=== PATIENT | female | born 1995 | race Caucasian/White ===

== ENCOUNTER 2016-12-13 15:05 | Emergency (ER) | payer BC ==
[2016-12-13 16:48] VITALS: BP 118/79
--- NOTE | 2016-12-13 17:41 | UC ---
Respiratory Complaint HPI - HPI Summary HPI Summary: worsening sinus pain and pressure for the past several days also has a tight chest and cough - History of Current Complaint Chief Complaint: UCRespiratory Stated Complaint: SINUS,SORE THROAT,EAR PAIN Time Seen by Provider: 12/13/16 17:36 Hx Obtained From: Patient Hx Last Menstrual Period: 12/03/16 ?: No Onset/Duration: Gradual Onset, Lasting Days, Still Present, Worse Since - 4 days Timing: Constant Severity Initially: Mild Severity Currently: Moderate Pain Intensity: 6 Pain Scale Used: 0-10 Numeric Character: Cough: Productive Aggravating Factors: Exertion, Deep Breaths Alleviating Factors: Nothing Associated Signs And Symptoms: Positive: Pleuritic Chest Pain, URI, Sinus Discomfort - Allergies/Home Medications Allergies/Adverse Reactions: Allergies Allergy/AdvReac Type Severity Reaction Status Date / Time No Known Allergies Allergy Verified 12/13/16 16:48 Home Medications: Home Medications Hmzesontfb-Hxpanqrpzvepj-Sgfyr [Sinus & Congestion Daytim] 1 mis PO DAILY [History Confirmed 12/13/16] PMH/Surg Hx/FS Hx/Imm Hx Previously Healthy: No Endocrine History Of: Denies: Diabetes, Thyroid Disease, Hyperthyroidism, Hypothyroidism, Dyslipidemia Cardiovascular History Of: Denies: Cardiac Disorders, Hypertension, Pacemaker/ICD, Myocardial Infarction , Congestive Heart Failure, Atrial Fibrillation, Deep Vein Thrombosis, Bleeding Disorders Respiratory History Of: Denies: COPD, Asthma, Bronchitis, Pneumonia, Pulmonary Embolism GI/ History Of: Denies: Gastroesophageal Reflux, Ulcer, Gastrointestinal Bleed, Gall Bladder Disease, Kidney Stones, Diverticulitis, Renal Disease, Urosepsis Neurological History Of: Denies: TIA, CVA, Dementia, Seizures, Migraine Psychological History Of: Reports: Anxiety - Anxiety and depression is a problem "on and off.", Depression Denies: Bipolar Disorder, Schizophrenia, Post Traumatic Stress Disorder Cancer History Of: Denies: Lung Cancer, Colorectal Cancer, Breast Cancer, Prostate Cancer, Cervical Cancer - Surgical History Surgical History: None - Family History Known Family History: Positive: Hypertension, Diabetes - Social History Occupation: Employed Full-time Lives: With Family Alcohol Use: Weekly Substance Use Type: None Smoking Status (MU): Former Smoker Type: Cigarettes, Cigars Amount Used/How Often: SOCIALLY--[employer] Length of Time of Smoking/Using Tobacco: 3 YRS Have You Smoked in the Last Year: Yes Review of Systems Constitutional: Negative Skin: Negative Eyes: Negative ENT: Sore Throat, Ear Ache, Nasal Discharge Respiratory: Cough Cardiovascular: Negative Gastrointestinal: Negative Genitourinary: Negative Motor: Negative Neurovascular: Negative Musculoskeletal: Negative Neurological: Headache - fontal/maxillary sinus pain Psychological: Negative All Other Systems Reviewed And Are Negative: Yes Physical Exam Triage Information Reviewed: Yes Appearance: Well-Appearing, No Pain Distress, Well-Nourished Vital Signs: Initial Vital Signs Temp 99.4 F 12/13/16 16:43 Pulse 63 12/13/16 16:43 Resp 16 12/13/16 16:43 BP 118/79 12/13/16 16:43 Pulse Ox 100 12/13/16 16:43 Vital Signs Reviewed: Yes Eye Exam: Normal Eyes: Positive: Conjunctiva Clear ENT Exam: Normal ENT: Positive: Normal ENT inspection, Hearing grossly normal, Pharynx normal, Nasal congestion, Nasal drainage, TMs normal. Negative: Tonsillar swelling, Tonsillar exudate, Trismus, Muffled/hoarse voice Dental Exam: Normal Neck exam: Normal Neck: Positive: Supple, Nontender, No Lymphadenopathy Respiratory Exam: Normal Respiratory: Positive: Chest non-tender, Lungs clear, Normal breath sounds, No respiratory distress, No accessory muscle use Cardiovascular Exam: Normal Cardiovascular: Positive: RRR, No Murmur, Pulses Normal, Brisk Capillary Refill Musculoskeletal Exam: Normal Musculoskeletal: Positive: Strength Intact, ROM Intact, No Edema Neurological Exam: Normal Neurological: Positive: Alert, Muscle Tone Normal Psychological Exam: Normal Skin Exam: Normal UC Diagnostic Evaluation - Laboratory O2 Sat by Pulse Oximetry: 100 Respiratory Course/Dx - Course Course Of Treatment: flonase, albuterol, increase fluids, augmentin follow with pcp - Differential Dx/Diagnosis Differential Diagnosis/HQI/PQRI: Bronchitis, Influenza, Laryngitis, Lower Resp Infection, Sinusitis Provider Diagnoses: Acute rhinosinusitis Discharge - Discharge Plan Condition: Stable Disposition: HOME Prescriptions: Albuterol HFA INHALER* [Ventolin HFA Inhaler*] 2 puff INH Q4H PRN #1 mdi PRN Reason: cough Amoxicillin/Clavulanate TAB* [Augmentin TAB 875*] 875 mg PO BID #20 tab Fluticasone NASAL SPRAY 50MCG* [Flonase NASAL SPRAY 50MCG*] 2 spray BOTH NARES DAILY #1 btl Patient Education Materials: Albuterol (By breathing), Sinusitis (ED), How to Use Nasal Spangler (ED) Forms: *School Release Referrals: [facility] [place] [facility] [Outside] - 5 Days No Primary Care Phys,NOPCP [Primary Care Provider] -
== END 2016-12-13 18:00 | disposition home or self-care (01) ==
LOC: UCCORT 15:05
DX: J01.90 Acute sinusitis, unspecified (principal); F41.8 Other specified anxiety disorders; Z72.0 Tobacco use
CPT/HCPCS: 99212; G0463

== ENCOUNTER 2017-04-21 16:46 | Emergency (ER) | payer SELFPAY ==
[2017-04-21 17:13] VITALS: BP 127/79
--- NOTE | 2017-04-21 17:30 | UC ---
Respiratory Complaint HPI - HPI Summary HPI Summary: ncreaed cough and wheezing for the past 2 days - History of Current Complaint Chief Complaint: UCRespiratory Stated Complaint: COLD SYMPTOMS Time Seen by Provider: 04/21/17 17:10 Hx Obtained From: Patient Hx Last Menstrual Period: 04/16/17 Onset/Duration: Sudden Onset, Lasting Days Timing: Constant Severity Initially: Mild Severity Currently: Mild Character: Cough: Nonproductive Aggravating Factors: Exertion, Deep Breaths Alleviating Factors: Nothing Associated Signs And Symptoms: Positive: Wheezing - Allergies/Home Medications Allergies/Adverse Reactions: Allergies Allergy/AdvReac Type Severity Reaction Status Date / Time No Known Allergies Allergy Verified 04/21/17 17:13 PMH/Surg Hx/FS Hx/Imm Hx Previously Healthy: Yes - Surgical History Surgical History: None - Family History Known Family History: Positive: Hypertension, Diabetes - Social History Alcohol Use: Occasionally Substance Use Type: None Smoking Status (MU): Former Smoker Type: Cigarettes, Cigars Amount Used/How Often: SOCIALLY--[employer] Length of Time of Smoking/Using Tobacco: 3 YRS Have You Smoked in the Last Year: Yes - Immunization History Most Recent Influenza Vaccination: no Review of Systems Constitutional: Negative Skin: Negative Eyes: Negative ENT: Negative Respiratory: Shortness Of Breath, Cough Cardiovascular: Negative Gastrointestinal: Negative Genitourinary: Negative Motor: Negative Neurovascular: Negative Musculoskeletal: Negative Neurological: Negative Psychological: Negative Is Patient Immunocompromised?: No All Other Systems Reviewed And Are Negative: Yes Physical Exam Triage Information Reviewed: Yes Appearance: Well-Appearing, Well-Nourished, Pain Distress Vital Signs: Initial Vital Signs Temp 98.2 F 04/21/17 17:09 Pulse 64 04/21/17 17:09 Resp 15 04/21/17 17:09 BP 127/79 04/21/17 17:09 Pulse Ox 100 04/21/17 17:09 Vital Signs Reviewed: Yes Eye Exam: Normal ENT: Positive: Pharynx normal, TMs normal Dental Exam: Normal Neck exam: Normal Respiratory: Positive: Chest non-tender, Normal breath sounds, Wheezing, Inspiration Cardiovascular Exam: Normal Cardiovascular: Positive: RRR, No Murmur, Pulses Normal Abdominal Exam: Normal Abdomen Description: Positive: Nontender, No Organomegaly, Soft Bowel Sounds: Positive: Present Musculoskeletal Exam: Normal Neurological Exam: Normal Psychological Exam: Normal Skin Exam: Normal UC Diagnostic Evaluation - Laboratory O2 Sat by Pulse Oximetry: 100 Respiratory Course/Dx - Differential Dx/Diagnosis Provider Diagnoses: wheezing. cold symptoms Discharge - Discharge Plan Condition: Stable Disposition: HOME Prescriptions: predniSONE TAB* [Deltasone TAB*] 40 mg PO DAILY #14 tab Patient Education Materials: Wheezing (ED) Referrals: No Primary Care Phys,NOPCP [Primary Care Provider] - Additional Instructions: 1. continue with your albuterol and flonase 2. Start the daily prednisone 3. INcrease fluid intake and get plenty of rest.
== END 2017-04-21 17:32 | disposition home or self-care (01) ==
LOC: UCCORT 16:46
DX: R06.2 Wheezing (principal); Z87.891 Personal history of nicotine dependence
CPT/HCPCS: 99212; G0463

== ENCOUNTER 2017-07-10 17:49 | Emergency (ER) | payer SELFPAY ==
[2017-07-10 18:37] VITALS: BP 125/79
--- NOTE | 2017-07-10 19:00 | UC ---
Complaint Female HPI - HPI Summary HPI Summary: Pt states she is "two weeks late for her period" has taken to at home tests and both were negative. Pt c/o nausea, vomiting, fatigue X 2 days. Does not use control and has had unprotected sex. - History Of Current Complaint Stated Complaint: TEST Time Seen by Provider: 07/10/17 18:17 Hx Obtained From: Patient Hx Last Menstrual Period: END April 2017 ?: Yes - test at today's visit Onset/Duration: Sudden Onset, Lasting Days, Still Present Timing: Intermittent Severity Initially: Mild Severity Currently: Mild Character: Colicy Aggravating Factor(s): Other - food Alleviating Factor(s): Nothing Associated Signs And Symptoms: Positive: Nausea, Vomiting(# Of Episodes =) - Risk Factors Ectopic Risk Factor: Negative Ovarian Torsion Risk Factor: Negative - Allergies/Home Medications Allergies/Adverse Reactions: Allergies Allergy/AdvReac Type Severity Reaction Status Date / Time No Known Allergies Allergy Verified 07/10/17 18:28 PMH/Surg Hx/FS Hx/Imm Hx Previously Healthy: Yes - Surgical History Surgical History: None - Family History Known Family History: Positive: Hypertension, Diabetes - Social History Occupation: Employed Full-time Lives: With Family Alcohol Use: Occasionally Substance Use Type: None Smoking Status (MU): Former Smoker Type: Cigarettes, Cigars Amount Used/How Often: SOCIALLY--[employer] Length of Time of Smoking/Using Tobacco: 3 YRS Have You Smoked in the Last Year: Yes Household Exposure Type: Cigarettes - Immunization History Most Recent Influenza Vaccination: no Review of Systems Constitutional: Negative Skin: Negative Eyes: Negative ENT: Negative Respiratory: Negative Cardiovascular: Negative Gastrointestinal: Vomiting, Nausea Genitourinary: Negative Motor: Negative Neurovascular: Negative Musculoskeletal: Negative Neurological: Negative Psychological: Negative Is Patient Immunocompromised?: No All Other Systems Reviewed And Are Negative: Yes Physical Exam Triage Information Reviewed: Yes Appearance: Well-Appearing Vital Signs: Initial Vital Signs Temp 98.1 F 07/10/17 18:29 Pulse 83 07/10/17 18:29 Resp 16 07/10/17 18:29 BP 125/79 07/10/17 18:29 Pulse Ox 100 07/10/17 18:29 Vital Signs Reviewed: Yes Eye Exam: Normal ENT Exam: Normal Neck exam: Normal Respiratory Exam: Normal Cardiovascular Exam: Normal Abdominal Exam: Normal Musculoskeletal Exam: Normal Neurological Exam: Normal Psychological Exam: Normal Skin Exam: Normal Complaint Female Dx - Differential Dx/Diagnosis Differential Diagnosis/HQI/PQRI: , Sexually Transmitted Disease, Urinary Tract Infection Provider Diagnoses: Discharge - Discharge Plan Condition: Stable Disposition: HOME Prescriptions: Multivit-Min W/Fe-FA [ and Iron] 1 tab PO DAILY #30 tab Patient Education Materials: Nausea and Vomiting in (ED), ( ED) Referrals: [facility] [place] [facility] [Outside] Sergio Vasquez MD [Medical Doctor] - Umer,In-MD Deborah [Medical Doctor] - Barbi Guillen MD [Medical Doctor] - Simin Swartz MD [Medical Doctor] - No Primary Care Phys,NOPCP [Primary Care Provider] - As Soon As Possible Additional Instructions: Please seek care from any of the providers listed above. It is important that you establish care as soon as possible.
== END 2017-07-10 19:25 | disposition home or self-care (01) ==
LOC: UCCORT 17:49
DX: O21.0 Mild hyperemesis gravidarum (principal); O99.330 Smoking (tobacco) complicating pregnancy, unspecified trimester; Z3A.00 Weeks of gestation of pregnancy not specified
CPT/HCPCS: 81003; 84702; 87086; 99212; G0463

== ENCOUNTER 2017-07-18 13:49 | Emergency (ER) | payer SELFPAY ==
[2017-07-18 14:00] VITALS: BP 130/83
--- NOTE | 2017-07-18 14:08 | UC ---
Complaint Female HPI - HPI Summary HPI Summary: Pt presents ~8 weeks with lower abdominal cramping and spotting with small blood clots for the past week. This is her first . She has had significant nausea, but no vomiting. The lower abdominal cramping is the worst today that it has been all week. She denies fever, chills, dysuria, hematuria, SOB, cough, chest pain, headache, or dizziness. She does not have an OBGYN and has not had any blood tests or ultrasounds. She taking a vitamin daily. Her LMP was mid-late april - History Of Current Complaint Chief Complaint: UCAbdominalPain Stated Complaint: CRAMPING,BLEEDING,6 WEEKS PREG Time Seen by Provider: 07/18/17 14:03 Hx Obtained From: Patient Hx Last Menstrual Period: april ?: Yes Onset/Duration: Gradual Onset Timing: Constant Severity Initially: Mild Severity Currently: Moderate Pain Intensity: 9 Pain Scale Used: 0-10 Numeric Character: Dull, Cramping - Allergies/Home Medications Allergies/Adverse Reactions: Allergies Allergy/AdvReac Type Severity Reaction Status Date / Time No Known Allergies Allergy Verified 07/18/17 14:00 Home Medications: Home Medications Acetaminophen [Tylenol 8 Hour] 650 mg PO Q6H PRN 07/18/17 [History Confirmed ] PMH/Surg Hx/FS Hx/Imm Hx Previously Healthy: Yes - Surgical History Surgical History: None - Family History Known Family History: Positive: Hypertension, Diabetes - Social History Occupation: Student Lives: With Family Alcohol Use: None Substance Use Type: None Smoking Status (MU): Former Smoker Type: Cigarettes, Cigars Amount Used/How Often: [email or web address] Length of Time of Smoking/Using Tobacco: 3 YRS Have You Smoked in the Last Year: Yes Household Exposure Type: Cigarettes - Immunization History Most Recent Influenza Vaccination: none Review of Systems Constitutional: Negative Skin: Negative ENT: Negative Respiratory: Negative Cardiovascular: Negative Gastrointestinal: Abdominal Pain - Lower Genitourinary: Abnormal Bleeding - Vaginal Neurovascular: Negative Neurological: Negative Psychological: Negative All Other Systems Reviewed And Are Negative: Yes Physical Exam Triage Information Reviewed: Yes Appearance: Well-Appearing, No Pain Distress, Well-Nourished Vital Signs: Initial Vital Signs Temp 97.6 F 07/18/17 13:55 Pulse 81 07/18/17 13:55 Resp 16 07/18/17 13:55 BP 130/83 07/18/17 13:55 Pulse Ox 100 07/18/17 13:55 Vital Signs Reviewed: Yes Eyes: Positive: Conjunctiva Clear, Other: - No pallor. Negative: Conjunctiva Inflamed ENT: Positive: Hearing grossly normal, Pharynx normal, TMs normal, Uvula midline , Other - No pallor. Negative: Pharyngeal erythema, TM bulging, TM dull, TM red , Tonsillar swelling, Tonsillar exudate Neck: Positive: Supple, Nontender, No Lymphadenopathy Respiratory: Positive: Chest non-tender, Lungs clear, Normal breath sounds, No respiratory distress, No accessory muscle use Cardiovascular: Positive: RRR, No Murmur, Pulses Normal, Brisk Capillary Refill Abdomen Description: Positive: No Organomegaly, Guarding - Hypogastric, Other: - Hypogastric pain. Negative: CVA Tenderness (R), CVA Tenderness (L), Distended , McBurney's Point Tenderness, Peritoneal Signs, Pulsatile Mass Bowel Sounds: Positive: Present Neurological: Positive: Alert Psychological: Positive: Age Appropriate Behavior - Additional Comments Genital exam: Pubic hair shaven. Vaginal pearson pink with copious blood and clotted blood. Cervix with clotted blood at 6 o'clock - appears closed, but with recent bleeding from os. No thick or discolored discharge appreciated. No products of conception seen. There is mild CMT. Uterus is small pear shaped and mildly tender. Adnexa are nontender. Ovaries not palpated. Complaint Female Dx - Course Course Of Treatment: Possible threatened . Pt was advised to seek a further work up in the ED - likely in need of labs, ultrasound, and/or OBGYN consult. An ambulance was offered to her, but she declined. She voiced understanding and will go there now by private vehicle - this is agreeable to me as her VS are stable and she is in no acute distress. - Differential Dx/Diagnosis Differential Diagnosis/HQI/PQRI: Cervicitis, Ectopic, Pelvic Inflammatory Disease, , Sexually Transmitted Disease Provider Diagnoses: Threatened . Vaginal bleeding. Lower abdominal cramping Discharge - Discharge Plan Condition: Stable Disposition: OTHER Discharge Disposition Comment: To [facility] [place] [facility] [place] private [place] Referrals: No Primary Care Phys,NOPCP [Primary Care Provider] - Additional Instructions: The provider that examined you today advised that you seek further medical evaluation in the ED. 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
== END 2017-07-18 14:55 ==
LOC: UCEAST 13:49
DX: O20.0 Threatened abortion (principal); Z3A.08 8 weeks gestation of pregnancy; Z87.891 Personal history of nicotine dependence
CPT/HCPCS: 81003; 99212; G0463

== ENCOUNTER 2017-07-18 15:15 | Emergency (ER) | payer SELFPAY ==
[2017-07-18] MEDS ORDERED: Acetaminophen TAB* 325 MG PO ONE (15:46)
--- NOTE | 2017-07-18 16:34 | RAD ---
INDICATION: Early with bleeding COMPARISON: None TECHNIQUE: Transvaginal scans were obtained for determination FINDINGS: There is no evidence of intrauterine gestation. The endometrial stripe measures 0.7 cm The uterus measures Brenda 1 x 3.2 x 3.6. There is no evidence of adnexal mass. The right ovary measures 2.9 x 2.2 x 2.7 cm in the left 2.7 x 1.8 x 1.9 cm. There is probably an exophytic cyst in the left ovary which is involuting and is measured at 1.4 cm in greatest dimension. This entity shows no flow on Doppler interrogation. The ovaries demonstrate normal Doppler flow. There is no free fluid IMPRESSION: NO EVIDENCE OF INTRAUTERINE GESTATION. SUGGEST CORRELATION WITH SERIAL HCGS AND FOLLOW-UP ULTRASONOGRAPHY NECESSARY
[2017-07-18 17:23] VITALS: BP 124/78
--- NOTE | 2017-07-18 18:17 | ED ---
Bradley Mcgregor Stephanie, scribed for Fredo Resendiz MD on 07/18/17 at 1539 . Abdominal Pain/Female - HPI Summary HPI Summary: Pt is a 22 y/o F presenting to the ED with abd cramping and bleeding. Pt had a positive test on 07/10/17 and is 6-8 weeks . Symptoms include nausea and diarrhea. Pt denies dysuria. Her last known menstrual period was on May 20. The pt states that the blood appears to be darker currently compared to at the onset of bleeding. The pt has a card documenting her blood type as O+. - History of Current Complaint Chief Complaint: EDAbdPain Stated Complaint: ABP PAIN SENT FROM [facility] Time Seen by Provider: 07/18/17 15:24 Hx Obtained From: Patient Hx Last Menstrual Period: april ?: Yes Onset/Duration: Still Present Timing: Constant Pain Intensity: 7 Pain Scale Used: 0-10 Numeric Aggravating Factor(s): Nothing Alleviating Factor(s): Nothing Associated Signs and Symptoms: Positive: Urinary Symptoms - negative: dysuria, Nausea, Diarrhea. Negative: Fever Allergies/Adverse Reactions: Allergies Allergy/AdvReac Type Severity Reaction Status Date / Time No Known Allergies Allergy Verified 07/18/17 14:00 PMH/Surg Hx/FS Hx/Imm Hx Endocrine/Hematology History: Denies: Hx Diabetes, Hx Thyroid Disease Cardiovascular History: Denies: Hx Congestive Heart Failure, Hx Deep Vein Thrombosis, Hx Hypertension , Hx Myocardial Infarction, Hx Pacemaker/ICD Respiratory History: Denies: Hx Asthma, Hx Chronic Obstructive Pulmonary Disease (COPD), Hx Lung Cancer, Hx Pneumonia, Hx Pulmonary Embolism GI History: Denies: Hx Gall Bladder Disease, Hx Gastrointestinal Bleed, Hx Ulcer, Hx Urosepsis History: Denies: Hx Kidney Stones, Hx Renal Disease Sensory History: Denies: Hx Hearing Aid Neurological History: Denies: Hx Dementia, Hx Migraine, Hx Seizures, Hx Transient Ischemic Attacks (TIA) Psychiatric History: Reports: Hx Anxiety - Anxiety and depression is a problem "on and off.", Hx Depression Denies: Hx Panic Disorder, Hx Schizophrenia, Hx Bipolar Disorder Infectious Disease History: No Infectious Disease History: Denies: History Other Infectious Disease, Traveled Outside the [place] in Last 30 Days - Family History Known Family History: Positive: Hypertension, Diabetes - Social History Alcohol Use: None Substance Use Type: Reports: None Smoking Status (MU): Former Smoker Type: Cigarettes, Cigars Amount Used/How Often: SOCIALLY--[employer] Length of Time of Smoking/Using Tobacco: 3 YRS Have You Smoked in the Last Year: Yes Review of Systems Negative: Fever Positive: Diarrhea, Nausea Negative: dysuria All Other Systems Reviewed And Are Negative: Yes Physical Exam - Summary Physical Exam Summary: Appearance: Well appearing, no pain distress Skin: warm, dry, reflects adequate perfusion Head/face: normal Eyes: EOMI, TONE ENT: normal Neck: supple, non-tender Respiratory: CTA, breath sounds present Cardiovascular: RRR, pulses symmetrical Abdomen: Slight suprapubic tenderness, soft Bowel: present Musculoskeletal: normal, strength/ROM intact Neuro: normal, sensory motor intact, A&Ox3 Triage Information Reviewed: Yes Vital Signs On Initial Exam: Initial Vitals Temp Pulse Resp BP Pulse Ox 98.5 F 75 18 113/82 100 07/18/17 15:19 07/18/17 15:19 07/18/17 15:19 07/18/17 15:19 07/18/17 15:19 Vital Signs Reviewed: Yes Diagnostics - Vital Signs Vital Signs Temp Pulse Resp BP Pulse Ox 07/18/17 15:19 98.5 F 75 18 113/82 100 - Laboratory Lab Results: Lab Results 07/18/17 07/18/17 Range/Units 15:44 15:44 Beta HCG, Quant 105.86 mIU/mL Blood Type O Positive Lab Statement: Any lab studies that have been ordered have been reviewed, and results considered in the medical decision making process. - Ultrasound No standard instances Ultrasound Interpretation: Positive (See Comments) - NO EVIDENCE OF INTRAUTERINE GESTATION. SUGGEST CORRELATION WITH SERIAL HCGS AND FOLLOW-UP ULTRASONOGRAPHY NECESSARY Ultrasound Interpretation Completed By: Radiologist Re-Evaluation - Re-Evaluation First Eval Re-Evaluation Time: 16:36 Change: Improved Comment: There is a mild to moderate amount of blood without any tissue. Cervix is closed with minimal active bleeding from the cervix. Pain has improved and bleeding persists. Abdominal Pain Fem Course/Dx - Course Course Of Treatment: pt Rh+. Quant only ~100. TV Ultrasound shows no evidence for ectopic, appears as completed ab. f/u OB. - Diagnoses Provider Diagnoses: Complete miscarriage Discharge - Discharge Plan Condition: Good Disposition: HOME Patient Education Materials: Miscarriage (ED) Referrals: Matthew Jacobs MD [Medical Doctor] - Additional Instructions: Your blood type is O+. Return with heavy bleeding, worse or other concerns. You may take tylenol or ibuprofen for discomfort. Referral card has been given to help you get a primary care doctor. The documentation as recorded by the Bradley agosto Stephanie accurately reflects the service I personally performed and the decisions made by me, Fredo Resendiz MD.
== END 2017-07-18 17:21 | disposition home or self-care (01) ==
LOC: ED 15:15
DX: O03.9 Complete or unspecified spontaneous abortion without complication (principal)
CPT/HCPCS: 36415; 76817; 84702; 86900; 86901; 99283; A9270-GY

== ENCOUNTER 2019-01-28 13:16 | Emergency (ER) | payer SELFPAY ==
[2019-01-28 13:30] VITALS: BP 109/71
--- NOTE | 2019-01-28 14:15 | UC ---
Lower Extremity/Ankle HPI - HPI Summary HPI Summary: Last night sprung - History of Current Complaint Chief Complaint: UCLowerExtremity Stated Complaint: ANKLE INJURY Time Seen by Provider: 01/28/19 14:12 Hx Obtained From: Patient Hx Last Menstrual Period: 01/09/19 Onset/Duration: Sudden Onset Pain Intensity: 8 Pain Scale Used: 0-10 Numeric Aggravating Factor(s): Ambulation Alleviating Factor(s): Rest Able to Bear Weight: No - Allergies/Home Medications Allergies/Adverse Reactions: Allergies Allergy/AdvReac Type Severity Reaction Status Date / Time No Known Allergies Allergy Verified 01/28/19 13:30 Home Medications: Home Medications NK [No Home Medications Reported] 01/28/19 [History Confirmed 01/28/19] PMH/Surg Hx/FS Hx/Imm Hx - Additional Past Medical History Additional PMH: no chronic conditions. Previously Healthy: Yes - Surgical History Surgical History: None - Family History Known Family History: Positive: Hypertension, Diabetes - Social History Alcohol Use: Weekly Substance Use Type: Marijuana Smoking Status (MU): Never Smoked Tobacco Type: Cigarettes, Cigars Amount Used/How Often: SOCIALLY--[employer] BRAND Length of Time of Smoking/Using Tobacco: 3 YRS Have You Smoked in the Last Year: Yes Household Exposure Type: Cigarettes - Immunization History Most Recent Influenza Vaccination: none Review of Systems All Other Systems Reviewed And Are Negative: Yes Constitutional: Negative: Fever Skin: Negative: Rash, Bruising Respiratory: Positive: Negative Cardiovascular: Positive: Negative Motor: Positive: Decreased ROM Musculoskeletal: Positive: Arthralgia - R ankle, Decreased ROM - R ankle, Edema - L ankle Neurological: Negative: Paresthesia, Numbness Physical Exam Triage Information Reviewed: Yes Appearance: Well-Appearing Vital Signs: Initial Vital Signs Temp 98 F 01/28/19 13:27 Pulse 74 01/28/19 13:27 Resp 18 01/28/19 13:27 BP 109/71 01/28/19 13:27 Pulse Ox 98 01/28/19 13:27 Vital Signs Reviewed: Yes Musculoskeletal: Positive: Strength Limited @ - R ankle, ROM Limited @ - R ankle , Edema @ - R ankle Neurological: Positive: Muscle Tone Normal Skin: Negative: Rashes Lower Extremity Course/Dx - Course Course Of Treatment: R ankle pain after tripping in pot hole. NO neuro deficits and oN xray no fractures. Will have pt. immobilize it for moderate sprain and ok to take nsaids every 6hrs. - Differential Dx/Diagnosis Differential Diagnosis/HQI/PQRI: Sprain, Strain, Tendonitis Provider Diagnosis: Right ankle sprain Discharge - Sign-Out/Discharge Documenting (check all that apply): Patient Departure All imaging exams completed and their final reports reviewed: No Studies - Discharge Plan Condition: Good Disposition: HOME Patient Education Materials: Ankle Sprain (ED) Forms: *Work Release Referrals: Naty Mercedes MD [Medical Doctor] - Additional Instructions: If not improving please follow up with primary care. - Billing Disposition and Condition Condition: GOOD Disposition: Home
== END 2019-01-28 15:25 | disposition home or self-care (01) ==
LOC: UCEAST 13:16
DX: S93.401A Sprain of unspecified ligament of right ankle, initial encounter (principal); X58.XXXA Exposure to other specified factors, initial encounter; Y92.9 Unspecified place or not applicable
CPT/HCPCS: 99213; G0463

== ENCOUNTER 2019-09-14 23:51 | Emergency (ER) | payer BC ==
--- OUTSIDE RECORDS SUMMARY | 2019-09-15 00:02 | XMS REPORT | Continuity of Care Document ---
:1995 External Reference #:[id number] Author Name Naty Mercedes M.D. (transmitted by agent of provider Leonila Madrid) Address [address] [place] [id number] Care Team Providers Name Role Phone Patient's Choice Care Team Information Manager Film Unavailable Problems Active Problems Provider Date Sprain of lateral collateral ligament of knee Naty Mercedes M.D. Onset: 09/06 Social History Type Date Description Comments Sex Unknown ETOH Use Currently consumes alcohol Tobacco Use Start: Unknown Patient has never smoked Smoking Status Reviewed: 09/06/19 Patient has never smoked Exercise Type/Frequency Exercises sporadically Allergies, Adverse Reactions, Alerts Description No Known Drug Allergies Medications Description No Active Medications Immunizations Description No Information Available Vital Signs Date Vital Result Comment 09/06/2019 9:29am Height 62 inches 5'2" Weight 137.00 lb Heart Rate 66 /min BP Systolic 122 mmHg BP Diastolic 78 mmHg Body Temperature 97.2 F Pain Level 7 BMI (Body Mass Index) 25.1 kg/m2 02/04/2019 10:31am Height 62 inches 5'2" Weight 150.00 lb Heart Rate 61 /min Body Temperature 97.4 F O2 % BldC Oximetry 98 % BMI (Body Mass Index) 27.4 kg/m2 Results Description No Information Available Procedures Description No Information Available Medical Devices Description No Information Available Encounters Description No Information Available Assessments Date Code Description Provider 09/06/2019 M25.562 Pain in left knee Naty Mercedes M.D. 09/06/2019 M25.462 Effusion, left knee Naty Mercedes M.D. 09/06/2019 S83.422A Sprain of lateral collateral ligament of left Naty Mercedes M.D. knee, initial encounter Plan of Treatment 09/06/2019 - Naty Mercedes M.D.M25.562 Pain in left kneeFollow up:Follow up: after testing is completed - mri l kneeM25.462 Effusion, left kneeNew Xrays:MRI Knee Left W/O, Ordered: 09/06/1983.422A Sprain of lateral collateral ligament of left knee, initial encounter Functional Status Description No Information Available Mental Status Description No Information Available Referrals Description No Information Available
--- NOTE | 2019-09-15 00:43 | ED ---
Skin Complaint - HPI Summary HPI Summary: The patient is a 24-year-old male presenting to [facility] with a chief complaint of isolated bumps diffusely on the body onset a week ago with worsening. She reports that she initially noticed a single erythematous and swollen bump to the lateral right ankle. She thought that it was from a spider bite, so she ignored it until she began to develop more isolated bumps on her body, to the back, right thigh, left knee, left ankle, and left forearm. The bumps are erythematous, pruritic, and stinging. She also states that the right leg feels weak and numb compared to the left, causing her difficulty ambulating. She endorses dizziness but denies any fevers, N/V/D, change in appetite, urinary symptoms, sleep disturbance, or cough. She did, however, sustain a laceration to the distal left thumb two days ago, which is healing but feels numb and tingly. Symptoms rated 0/10 in severity. No medications [employer]ODUCTION [employer]CH[employer] for treatment. She does not have a history of this rash. She has tattoos where one bump is located , but she has not gotten a new tattoo recently to relate to her symptoms. No one at home has been experiencing similar symptoms. Past medical history includes anxiety and depression. Family history is not significant for autoimmune disease. Some day smoker, weekly EtOH, marijuana use. Medications reviewed. Allergies noted; NKA. - History of Current Complaint Chief Complaint: EDRashSkinAbscess Time Seen by Provider: 09/15/19 00:28 Stated Complaint: RASH PER PT Hx Obtained From: Patient Hx Last Menstrual Period: 01/09/19 Onset/Duration: Started Days Ago - one week, Still Present Skin Exposure Onset/Duration: Days Ago Timing: Constant Onset Severity: Mild Current Severity: Moderate Pain Intensity: 0 Pain Scale Used: 0-10 Numeric Skin Location: Diffuse - isolated spots on back, BLE, and LUE Character: Pruritus, Redness, Painful - stinging Aggravating Symptom(s): Nothing Alleviating Symptom(s): Nothing Associated Signs & Symptoms: Numbness - left thumb - Allergy/Home Medications Allergies/Adverse Reactions: Allergies Allergy/AdvReac Type Severity Reaction Status Date / Time No Known Allergies Allergy Verified 09/15/19 00:17 PMH/Surg Hx/FS Hx/Imm Hx Endocrine/Hematology History: Denies: Hx Diabetes, Hx Thyroid Disease Cardiovascular History: Denies: Hx Congestive Heart Failure, Hx Deep Vein Thrombosis, Hx Hypertension , Hx Myocardial Infarction, Hx Pacemaker/ICD Respiratory History: Denies: Hx Asthma, Hx Chronic Obstructive Pulmonary Disease (COPD), Hx Lung Cancer, Hx Pneumonia, Hx Pulmonary Embolism GI History: Denies: Hx Gall Bladder Disease, Hx Gastrointestinal Bleed, Hx Ulcer, Hx Urosepsis History: Denies: Hx Kidney Stones, Hx Renal Disease Sensory History: Denies: Hx Hearing Aid Neurological History: Denies: Hx Dementia, Hx Migraine, Hx Seizures, Hx Transient Ischemic Attacks (TIA) Psychiatric History: Reports: Hx Anxiety - Anxiety and depression is a problem "on and off.", Hx Depression Denies: Hx Panic Disorder, Hx Schizophrenia, Hx Bipolar Disorder - Surgical History Surgical History: Yes Surgery Procedure, Year, and Place: wisdom teeth Infectious Disease History: No Infectious Disease History: Denies: History Other Infectious Disease, Traveled Outside the [place] in Last 30 Days - Family History Known Family History: Positive: Hypertension, Diabetes Negative: Other - autoimmune disease - Social History Alcohol Use: Weekly Hx Substance Use: Yes Substance Use Type: Reports: Marijuana Hx Tobacco Use: Yes Smoking Status (MU): Current Some Day Smoker Type: Cigarettes, Cigars Amount Used/How Often: SOCIALLY--[employer] Length of Time of Smoking/Using Tobacco: 3 YRS Have You Smoked in the Last Year: Yes - Additional Comments History Additional Comments: anxiety, depression Review of Systems - ROS Summary Review of Systems Summary: Home Medications Medication Instructions Recorded Confirmed Type NK [No Home Medications Reported] 01/28/19 09/15/19 History Negative: Fever, Other - sleep disturbance Negative: Cough Negative: Vomiting, Diarrhea, Nausea, Other - change in appetite Positive: no symptoms reported Positive: Other - isolated erythematous, pruritic, and stinging bumps diffusely on body, laceration to left thumb Neurological/Mental Status: Other - dizziness Positive: Weakness - RLE, Paresthesia - left thumb, Numbness - left thumb All Other Systems Reviewed And Are Negative: Yes Physical Exam - Summary Physical Exam Summary: General: Well-developed, Well-nourished female. No acute distress. HEENT: Normocephalic, Atraumatic. Eyes: Conjuctiva normal, PERRL. Oropharynx: Clear, mucous membranes moist, (-) exudates. Neck: Soft, FROM, (-) lymphadenopathy, (-) thyromegaly, (-) JVD. Cardiovascular: Normal sinus rhythm, (-) murmur. Lungs: Clear to auscultation bilaterally (-) wheezes, (-) rales, (-) rhonchi. Abdomen: Soft, non-tender, non-distended, (-) organomegaly, normal bowel sounds. Back: (-) CVA tenderness Extremities: No edema. Skin: Warm, dry, (+) Isolated papules measuring 2cm with some surrounding erythema to the back, left and right ankles, left knee, and left forearm, Small laceration to the distal left thumb Neuro: Alert and oriented x3, moves all extremities equally. No ataxia. No gait disturbance. No sensory deficit. Normal strength, normal sensation. Psychiatric: Mood normal, affect normal. Triage Information Reviewed: Yes Vital Signs On Initial Exam: Initial Vitals Temp Pulse Resp BP Pulse Ox 99.3 F 95 20 162/108 99 09/14/19 23:53 09/14/19 23:53 09/14/19 23:53 09/14/19 23:53 09/14/19 23:53 Vital Signs Reviewed: Yes Procedures - Sedation Patient Received Moderate/Deep Sedation with Procedure: No Diagnostics - Vital Signs Vital Signs Temp Pulse Resp BP Pulse Ox 09/14/19 23:53 99.3 F 95 20 162/108 99 - Laboratory Result Diagrams: 09/15/19 00:42 09/15/19 00:42 Lab Statement: Any lab studies that have been ordered have been reviewed, and results considered in the medical decision making process. - Radiology CXR Radiology Interpretation Completed By: ED Physician Summary of Radiographic Findings: No infiltrate. No pleural effusion. This imaging study was reviewed and interpreted by Dr. Garcia. Pending official read. Re-Evaluation - Re-Evaluation First Eval Re-Evaluation Time: 03:10 Comment: I have discussed results with the patient. Discussed symptoms that warrant immediate return to ED. Course/Dx - Course Course Of Treatment: 24-year-old female presents today for rash. She states she has bumps on her skin.started on her right ankle 10 days ago. Thought perhaps it was a bug bite. She has since developed a few other bumps on her legs. One on her arm and one on her back. she states she feels kind of tired fatigued. No significant illness. she states they're mildly painful and mildly itching. She's been putting a Benadryl cream on without relief. Also has a laceration to the tip of her left thumb. With some numbness in that thumb. On physical exam she has 2 cm bumps, erythematous papules with no palpitation. No drainage. No fluctuance. Mildly tender. workup shows no significant abnormality. Discussed findings with patient length. 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 Patient information from up-to-date was printedfor patient. Advised elevating her legs. Ice to the areas. Ibuprofen and Benadryl as needed. Follow up with PCP. Follow-up sooner for any worsening symptoms. Patient administered Motrin and Benadryl. - Diagnoses Provider Diagnoses: Rash, Tobacco use Discharge ED - Sign-Out/Discharge Documenting (check all that apply): Patient Departure - Patient will be discharged home. - Discharge Plan Condition: Stable Disposition: HOME Patient Education Materials: How to Stop Smoking (ED), Acute Rash (ED) Referrals: [facility] [Outside] - 3 Days Additional Instructions: Please elevate your legs, apply ice, and take Benadryl and Ibuprofen for your symptoms. Please follow up with your primary care physician within three days. Please return to ED for any new or worsening symptoms. - Billing Disposition and Condition Condition: STABLE Disposition: Home - Attestation Statements Document Initiated by Rivera: Yes Documenting Scribe: Gabi Vann Provider For Whom Rivera is Documenting (Include Credential): Dr. Tereza Garcia MD Scribe Attestation: Gabi Mcgregor scribed for Dr. Tereza Garcia MD on 09/15/19 at 0521. Scribe Documentation Reviewed: Yes Provider Attestation: The documentation as recorded by the Gabi agosto accurately reflects the service I personally performed and the decisions made by me, Dr. Tereza Garcia MD Status of Rivera Document: Viewed
[2019-09-15 00:55] LABS: ABS Eosinophils 0.1 10^3/ul (0-0.6); ABS Lymphocytes 2.4 10^3/ul (1.0-4.8); ABS Monocytes 0.5 10^3/ul (0-0.8); ABS Neutrophils 4.2 10^3/ul (1.5-7.7); Eosinophil % 1.1 %; Hematocrit 38 % (35-47); Hemoglobin 13.1 g/dL (12.0-16.0); Mean Corpuscular HGB Conc 34 g/dL (31-36); Mean Corpuscular Hemoglobin 32 pg (27-31); Mean Corpuscular Volume 93 fL (80-97); Platelet Count 269 10^3/uL (150-450); Red Blood Count 4.12 10^6 /uL (3.70-4.87); Red Cell Distribution Width 14 % (10-15); White Blood Count 7.2 10^3/uL (3.5-10.8)
[2019-09-15 01:07] LABS: INR 1.01 (0.82-1.09)
[2019-09-15 01:11] LABS: Rheumatoid Factor < 10 IU/mL (<15)
[2019-09-15 01:13] LABS: ALT 16 U/L (7-52); AST 23 U/L (13-39); Albumin 4.1 g/dL (3.2-5.2); Albumin/Globulin Ratio 1.6 (1-3); Alkaline Phosphatase 64 U/L (34-104); Anion Gap 7 mmol/L (2-11); BUN/Creatinine Ratio 11.9 (8-20); Blood Urea Nitrogen 10 mg/dL (6-24); C Reactive Protein 1.01 mg/L (<8.01); CO2 Carbon Dioxide 25 mmol/L (22-32); Calcium 8.9 mg/dL (8.6-10.3); Chloride 105 mmol/L (101-111); EGFR Non-African American 82.6 (>60); Globulin 2.5 g/dL (2-4); Glucose 81 mg/dL (70-100); Potassium 3.7 mmol/L (3.5-5.0); Sodium 137 mmol/L (135-145); Total Protein 6.6 g/dL (6.4-8.9)
[2019-09-15 01:19] LABS: HCG Pregnancy 0.62 mIU/mL
[2019-09-15] MEDS ORDERED: Ibuprofen TAB* 400 MG PO ONE (02:08)
[2019-09-15] MEDS ORDERED: diPHENhydraMINE PO* 50 MG PO ONE (02:09)
[2019-09-15 02:40] LABS: Erythrocyte Sed Rate 5 mm/Hr (0-19)
[2019-09-15 03:01] LABS: Urine Appearance Clear; Urine Bilirubin Negative (Negative); Urine Blood Negative (Negative); Urine Color Yellow; Urine Glucose Negative (Negative); Urine Ketones Negative (Negative); Urine Nitrite Negative (Negative); Urine Protein Negative (Negative); Urine Specific Gravity 1.014 (1.010-1.030); Urine Urobilinogen Negative (Negative)
[2019-09-15 03:13] VITALS: BP 148/76
[2019-09-15 03:17] LABS: Urine Benzodiazepine Screen None Detected (None Detect); Urine Opiates Screen None Detected (None Detect)
== END 2019-09-15 03:12 | disposition home or self-care (01) ==
LOC: ED 23:51
DX: R21 Rash and other nonspecific skin eruption (principal); R20.0 Anesthesia of skin; R53.83 Other fatigue; Z72.0 Tobacco use
CPT/HCPCS: 36415; 71045; 80053; 80307; 81003; 83605; 84702; 85025; 85610; 85652; 86038; 86140; 86431; 99283; A9270-GY; G0480

== ENCOUNTER 2021-05-08 14:23 | Inpatient (IN) ==
[2021-05-08 15:19] LABS: ABS Lymphocytes 1.6 10^3/ul (1.0-4.8); ABS Monocytes 0.3 10^3/ul (0-0.8); ABS Neutrophils 3.9 10^3/ul (1.5-7.7); Eosinophil % 0.4 %; Hematocrit 37 % (35-47); Hemoglobin 12.8 g/dL (12.0-16.0); Lymphocyte % 27.1 %; Mean Corpuscular HGB Conc 34 g/dL (31-36); Mean Corpuscular Hemoglobin 30 pg (27-31); Mean Corpuscular Volume 88 fL (80-97); Mean Platelet Volume 8.4 fL (7.4-10.4); Platelet Count 281 10^3/uL (150-450); Red Blood Count 4.27 10^6 /uL (3.70-4.87); Red Cell Distribution Width 15 % (10-15); White Blood Count 5.9 10^3/uL (3.5-10.8)
[2021-05-08 15:50] LABS: HCG Pregnancy < 0.60 mIU/mL
[2021-05-08 15:55] LABS: ALT 12 U/L (7-52); AST 21 U/L (13-39); Albumin 4.4 g/dL (3.2-5.2); Albumin/Globulin Ratio 1.6 (1-3); Alkaline Phosphatase 60 U/L (35-149); Anion Gap 11 mmol/L (2-11); Blood Urea Nitrogen 7 mg/dL (6-24); CO2 Carbon Dioxide 24 mmol/L (22-32); Calcium 9.2 mg/dL (8.6-10.3); Chloride 104 mmol/L (101-111); Globulin 2.8 g/dL (2-4); Glucose 85 mg/dL (70-100); Potassium 3.4 mmol/L (3.5-5.0); Sodium 139 mmol/L (135-145); Total Protein 7.2 g/dL (6.4-8.9)
[2021-05-08 15:56] LABS: Acetaminophen < 15 mcg/mL; Alcohol, S 15 mg/dL (<13); Salicylate < 2.50 mg/dL (<30)
[2021-05-08 15:57] LABS: Urine Appearance Clear; Urine Bilirubin Negative (Negative); Urine Blood Negative (Negative); Urine Color Yellow; Urine Glucose Negative (Negative); Urine Ketones Negative (Negative); Urine Nitrite Negative (Negative); Urine Protein Negative (Negative); Urine Specific Gravity 1.016 (1.002-1.030); Urine Urobilinogen Negative (Negative)
[2021-05-08 16:09] LABS: Urine Benzodiazepine Screen None Detected (None Detect); Urine Cannabinoids Screen Presumptive Positive (None Detect); Urine Opiates Screen None Detected (None Detect)
[2021-05-08 19:42] LABS: Rapid COVID-19 Molecular Undetected (Undetected)
[2021-05-08] MEDS ORDERED: Al Hydrox/Mg Hydrox/Simet LIQ 30 ML UDC PO PRN (21:13)
[2021-05-09] MEDS: Nicotine GUM 2MG FRUIT FLAVOR PO PRN ×3 (00:29→23:43)
[2021-05-09] MEDS: Nicotine PATCH 14 MG/24 HR PATCH TRANSDERM SCH (07:40)
[2021-05-09] MEDS: Vitamin THERAPEUTIC TAB PO SCH (09:09)
[2021-05-10] MEDS ORDERED: Haloperidol 5 mg/ml SDV IV/IM 5 MG/ML AMP ONE (02:04)
[2021-05-10] MEDS ORDERED: diPHENhydraMINE IV 50 MG/ML 1 ml VIAL (BENADRYL) ONE (02:05)
[2021-05-10 08:13] LABS: HDL Cholesterol 82.7 mg/dL
[2021-05-10 09:53] LABS: HIV 4th Generation Nonreactive (Nonreactive)
[2021-05-10] MEDS: Nicotine PATCH 14 MG/24 HR PATCH TRANSDERM SCH (11:39)
[2021-05-10] MEDS: Vitamin THERAPEUTIC TAB PO SCH (11:40)
[2021-05-10] MEDS: Nicotine GUM 2MG FRUIT FLAVOR PO PRN (11:43)
[2021-05-11] MEDS: Nicotine PATCH 14 MG/24 HR PATCH TRANSDERM SCH (10:12)
[2021-05-11] MEDS: Vitamin THERAPEUTIC TAB PO SCH (10:13)
[2021-05-11] MEDS: Nicotine GUM 2MG FRUIT FLAVOR PO PRN (12:30)
[2021-05-12] MEDS: Vitamin THERAPEUTIC TAB PO SCH (09:56)
[2021-05-12] MEDS: Nicotine PATCH 14 MG/24 HR PATCH TRANSDERM SCH (09:56)
[2021-05-12] MEDS: Nicotine Lozenge mini 2 MG LOZNG.MINI MT PRN ×3 (15:41→19:37)
[2021-05-13] MEDS: Nicotine PATCH 14 MG/24 HR PATCH TRANSDERM SCH (08:51)
[2021-05-13] MEDS: Vitamin THERAPEUTIC TAB PO SCH (08:51)
[2021-05-13] MEDS: Nicotine Lozenge mini 2 MG LOZNG.MINI MT PRN ×3 (13:14→20:54)
[2021-05-13] MEDS: Nicotine GUM 2MG FRUIT FLAVOR PO PRN ×2 (14:07→19:14)
[2021-05-14] MEDS: Vitamin THERAPEUTIC TAB PO SCH (10:56)
[2021-05-14] MEDS: Nicotine PATCH 14 MG/24 HR PATCH TRANSDERM SCH ×2 (10:57→12:53)
[2021-05-14] MEDS: Nicotine Lozenge mini 2 MG LOZNG.MINI MT PRN ×3 (10:57→19:21)
[2021-05-14] MEDS: Nicotine GUM 2MG FRUIT FLAVOR PO PRN (12:51)
[2021-05-14 13:45] LABS: Chlamydia trachomatis NAA Negative (Negative); Neisseria gonorrhoeae (GC) NAA Negative (Negative)
[2021-05-15] MEDS: Vitamin THERAPEUTIC TAB PO SCH (08:45)
[2021-05-15] MEDS: Nicotine PATCH 14 MG/24 HR PATCH TRANSDERM SCH (08:47)
[2021-05-15] MEDS: Nicotine Lozenge mini 2 MG LOZNG.MINI MT PRN ×2 (08:47→19:42)
[2021-05-15] MEDS: Nicotine GUM 2MG FRUIT FLAVOR PO PRN (16:16)
[2021-05-16] MEDS: Nicotine PATCH 14 MG/24 HR PATCH TRANSDERM SCH (09:55)
[2021-05-16] MEDS: Nicotine Lozenge mini 2 MG LOZNG.MINI MT PRN ×3 (09:56→20:48)
[2021-05-16] MEDS: Vitamin THERAPEUTIC TAB PO SCH (09:56)
[2021-05-16] MEDS: Nicotine GUM 2MG FRUIT FLAVOR PO PRN ×2 (13:41→19:15)
[2021-05-17] MEDS: Nicotine PATCH 14 MG/24 HR PATCH TRANSDERM SCH (07:45)
[2021-05-17] MEDS: Vitamin THERAPEUTIC TAB PO SCH (07:46)
[2021-05-17] MEDS: Nicotine Lozenge mini 2 MG LOZNG.MINI MT PRN ×2 (11:03→16:55)
[2021-05-17] MEDS: Nicotine GUM 2MG FRUIT FLAVOR PO PRN (19:51)
[2021-05-18 07:42] VITALS: BP 110/55
[2021-05-18] MEDS: Nicotine PATCH 14 MG/24 HR PATCH TRANSDERM SCH (08:32)
[2021-05-18] MEDS: Vitamin THERAPEUTIC TAB PO SCH (08:32)
[2021-05-18] MEDS: Nicotine GUM 2MG FRUIT FLAVOR PO PRN (10:50)
== END 2021-05-18 11:50 | disposition home or self-care (01) | DRG 753 ==
LOC: ED 14:23 → BSU 18:35
PROVIDERS: ADMIT Psychiatry & Neurology Psychiatry; ATTEND Psychiatry & Neurology Psychiatry

== ENCOUNTER 2022-05-23 04:29 | Inpatient (IN) ==
[2022-05-23] MEDS ORDERED: Haloperidol 5 mg/ml SDV IV/IM 5 MG/ML AMP IM ONE (04:55)
[2022-05-23] MEDS ORDERED: LORazepam 2 mg VIAL 1 ml IM ONE (04:55)
[2022-05-23 05:54] LABS: Urine Appearance Clear; Urine Bilirubin Negative (Negative); Urine Blood Negative (Negative); Urine Color Colorless; Urine Glucose Negative (Negative); Urine Ketones Negative (Negative); Urine Nitrite Negative (Negative); Urine Protein Negative (Negative); Urine Urobilinogen Negative (Negative)
[2022-05-23 06:02] LABS: ABS Basophils 0.1 10^3/ul (0-0.2); ABS Lymphocytes 1.9 10^3/ul (1.0-4.8); ABS Monocytes 0.7 10^3/ul (0-0.8); ABS Neutrophils 5.9 10^3/ul (1.5-7.7); Eosinophil % 0.3 %; Hematocrit 35 % (35-47); Hemoglobin 11.5 g/dL (12.0-16.0); Lymphocyte % 22.4 %; Mean Corpuscular HGB Conc 32 g/dL (31-36); Mean Corpuscular Hemoglobin 29 pg (27-31); Mean Corpuscular Volume 90 fL (80-97); Mean Platelet Volume 8.2 fL (7.4-10.4); Platelet Count 219 10^3/uL (150-450); Red Blood Count 3.93 10^6 /uL (3.70-4.87); Red Cell Distribution Width 15 % (10-15); White Blood Count 8.7 10^3/uL (3.5-10.8)
[2022-05-23 06:13] LABS: Urine Benzodiazepine Screen None Detected (None Detect); Urine Cannabinoids Screen Presumptive Positive (None Detect); Urine Opiates Screen None Detected (None Detect)
[2022-05-23 06:40] LABS: ALT 17 U/L (7-52); AST 25 U/L (13-39); Acetaminophen < 15 mcg/mL; Albumin 4.1 g/dL (3.2-5.2); Albumin/Globulin Ratio 1.8 (1-3); Alcohol, S < 13 mg/dL (<13); Alkaline Phosphatase 69 U/L (35-149); Anion Gap 9 mmol/L (2-11); Blood Urea Nitrogen 6 mg/dL (6-24); CO2 Carbon Dioxide 25 mmol/L (22-32); Calcium 9.4 mg/dL (8.6-10.3); Chloride 103 mmol/L (101-111); Globulin 2.3 g/dL (2-4); Glucose 176 mg/dL (70-100); Potassium 3.4 mmol/L (3.5-5.0); Salicylate < 2.50 mg/dL (<30); Sodium 137 mmol/L (135-145); Total Protein 6.4 g/dL (6.4-8.9); Valproic Acid < 13.0 mcg/mL (50-100); eGFR CKD-EPI 97.6 (>60)
[2022-05-23 06:46] LABS: HCG Pregnancy < 0.60 mIU/mL
[2022-05-23 06:55] LABS: TSH Ultra Thyroid Stim Horm 1.76 mcIU/mL (0.34-5.60)
[2022-05-23] MEDS ORDERED: Al Hydrox/Mg Hydrox/Simet LIQ 30 ML UDC PO PRN (11:44)
[2022-05-23] MEDS: Nicotine GUM 2MG FRUIT FLAVOR PO PRN (17:30)
[2022-05-24] MEDS: Vitamin THERAPEUTIC TAB PO SCH (08:51)
[2022-05-24] MEDS: Nicotine PATCH 21 MG/24 HR PATCH TRANSDERM SCH (08:51)
[2022-05-24] MEDS: Nicotine GUM 2MG FRUIT FLAVOR PO PRN ×5 (11:54→22:49)
[2022-05-25] MEDS: Nicotine PATCH 21 MG/24 HR PATCH TRANSDERM SCH ×2 (10:08→13:12)
[2022-05-25] MEDS: Vitamin THERAPEUTIC TAB PO SCH (10:08)
[2022-05-25] MEDS: Nicotine GUM 2MG FRUIT FLAVOR PO PRN ×2 (13:13→19:50)
[2022-05-25] MEDS: Nicotine Lozenge mini 4 MG LOZNG.MINI MT PRN ×3 (15:20→23:29)
[2022-05-26] MEDS: Nicotine GUM 2MG FRUIT FLAVOR PO PRN ×4 (02:18→20:41)
[2022-05-26] MEDS: Nicotine Lozenge mini 4 MG LOZNG.MINI MT PRN ×3 (04:08→18:47)
[2022-05-26] MEDS: Vitamin THERAPEUTIC TAB PO SCH (07:33)
[2022-05-26] MEDS: Nicotine PATCH 21 MG/24 HR PATCH TRANSDERM SCH (07:34)
[2022-05-26] MEDS ORDERED: Polyethylene Glycol 3350 17 GM PACKET PO PRN (19:34)
[2022-05-27] MEDS: Nicotine Lozenge mini 4 MG LOZNG.MINI MT PRN ×4 (00:03→18:58)
[2022-05-27] MEDS: Vitamin THERAPEUTIC TAB PO SCH (08:08)
[2022-05-27 08:18] LABS: HDL Cholesterol 81.8 mg/dL
[2022-05-27] MEDS: Nicotine PATCH 21 MG/24 HR PATCH TRANSDERM SCH (09:34)
[2022-05-27] MEDS: Nicotine GUM 2MG FRUIT FLAVOR PO PRN ×2 (11:56→14:43)
[2022-05-28 08:14] VITALS: BP 132/80
[2022-05-28] MEDS: Vitamin THERAPEUTIC TAB PO SCH (11:07)
[2022-05-28] MEDS: Nicotine GUM 2MG FRUIT FLAVOR PO PRN ×2 (11:09→14:23)
[2022-05-28] MEDS: Nicotine PATCH 21 MG/24 HR PATCH TRANSDERM SCH (12:42)
[2022-05-28] MEDS: Nicotine Lozenge mini 4 MG LOZNG.MINI MT PRN (12:43)
== END 2022-05-28 14:30 | disposition home or self-care (01) | DRG 753 ==
LOC: ED 04:29 → EDHOLD 11:44 → BSU 12:36
PROVIDERS: ADMIT Psychiatry & Neurology Psychiatry; ATTEND Psychiatry & Neurology Psychiatry

== ENCOUNTER 2022-06-13 13:04 | Inpatient (IN) ==
[2022-06-13 16:06] LABS: ABS Lymphocytes 1.7 10^3/ul (1.0-4.8); ABS Monocytes 0.6 10^3/ul (0-0.8); ABS Neutrophils 5.5 10^3/ul (1.5-7.7); Eosinophil % 0.1 %; Hematocrit 38 % (35-47); Hemoglobin 12.5 g/dL (12.0-16.0); Lymphocyte % 21.8 %; Mean Corpuscular HGB Conc 33 g/dL (31-36); Mean Corpuscular Hemoglobin 29 pg (27-31); Mean Corpuscular Volume 88 fL (80-97); Mean Platelet Volume 7.7 fL (7.4-10.4); Platelet Count 321 10^3/uL (150-450); Red Blood Count 4.32 10^6 /uL (3.70-4.87); Red Cell Distribution Width 15 % (10-15); White Blood Count 7.9 10^3/uL (3.5-10.8)
[2022-06-13 16:17] LABS: Urine Benzodiazepine Screen None Detected (None Detect); Urine Cannabinoids Screen Presumptive Positive (None Detect); Urine Opiates Screen None Detected (None Detect)
[2022-06-13 16:51] LABS: HCG Pregnancy 732.67 mIU/mL
[2022-06-13 17:00] LABS: ALT 15 U/L (7-52); AST 23 U/L (13-39); Acetaminophen < 15 mcg/mL; Albumin 4.6 g/dL (3.2-5.2); Alcohol, S < 13 mg/dL (<13); Alkaline Phosphatase 65 U/L (35-149); Anion Gap 9 mmol/L (2-11); Blood Urea Nitrogen 6 mg/dL (6-24); CO2 Carbon Dioxide 22 mmol/L (22-32); Calcium 9.8 mg/dL (8.6-10.3); Chloride 105 mmol/L (101-111); Globulin 2.3 g/dL (2-4); Glucose 110 mg/dL (70-100); Potassium 4.1 mmol/L (3.5-5.0); Salicylate < 2.50 mg/dL (<30); Sodium 136 mmol/L (135-145); TSH Ultra Thyroid Stim Horm 1.99 mcIU/mL (0.34-5.60); Total Protein 6.9 g/dL (6.4-8.9); eGFR CKD-EPI 122.3 (>60)
[2022-06-13] MEDS: Nicotine GUM 2MG FRUIT FLAVOR PO PRN ×2 (20:34→22:36)
[2022-06-13] MEDS ORDERED: OLANZapine 5 mg TAB *ODT PO PRN (22:24)
[2022-06-14] MEDS: Nicotine PATCH 21 MG/24 HR PATCH TRANSDERM SCH (08:10)
[2022-06-14] MEDS: Nicotine GUM 2MG FRUIT FLAVOR PO PRN ×2 (09:08→11:11)
[2022-06-14] MEDS ORDERED: OLANZapine 5 mg TAB *ODT PO PRN (10:34)
[2022-06-14] MEDS: Nicotine Lozenge mini 2 MG LOZNG.MINI MT PRN ×4 (13:04→19:36)
[2022-06-14] MEDS: Calcium Carb (TUMS) 500 mg CHEW TAB PO PRN (18:44)
[2022-06-14] MEDS: OLANZapine 10 mg TAB*ODT PO SCH (19:36)
[2022-06-15] MEDS: Calcium Carb (TUMS) 500 mg CHEW TAB PO PRN ×2 (05:49→10:39)
[2022-06-15] MEDS: Nicotine Lozenge mini 2 MG LOZNG.MINI MT PRN ×6 (05:50→23:58)
[2022-06-15] MEDS: Nicotine PATCH 21 MG/24 HR PATCH TRANSDERM SCH (08:19)
[2022-06-15] MEDS: Nicotine GUM 2MG FRUIT FLAVOR PO PRN ×3 (14:16→22:23)
[2022-06-15] MEDS: OLANZapine 10 mg TAB*ODT PO SCH (20:38)
[2022-06-16] MEDS: Nicotine PATCH 21 MG/24 HR PATCH TRANSDERM SCH (08:03)
[2022-06-16] MEDS: Nicotine Lozenge mini 2 MG LOZNG.MINI MT PRN ×6 (08:04→22:18)
[2022-06-16] MEDS: Nicotine GUM 2MG FRUIT FLAVOR PO PRN ×3 (09:58→21:16)
[2022-06-16] MEDS: OLANZapine 10 mg TAB*ODT PO SCH (19:59)
[2022-06-17] MEDS: Nicotine GUM 2MG FRUIT FLAVOR PO PRN (06:59)
[2022-06-17] MEDS: Nicotine Lozenge mini 2 MG LOZNG.MINI MT PRN ×2 (07:22→10:56)
[2022-06-17] MEDS: Nicotine PATCH 21 MG/24 HR PATCH TRANSDERM SCH (08:59)
[2022-06-17] MEDS: Calcium Carb (TUMS) 500 mg CHEW TAB PO PRN (09:16)
[2022-06-17 10:52] VITALS: BP 126/88
[2022-06-18] MEDS ORDERED: Nicotine PATCH 14 MG/24 HR PATCH TRANSDERM SCH (09:00)
== END 2022-06-17 13:24 | disposition home or self-care (01) | DRG 753 ==
LOC: ED 13:04 → EDHOLD 18:15 → BSU 19:29
PROVIDERS: ADMIT Psychiatry & Neurology Psychiatry; ATTEND Psychiatry & Neurology Psychiatry

== ENCOUNTER 2023-02-07 09:07 | Inpatient (IN) ==
[2023-02-07] MEDS ORDERED: Nalbuphine 10 MG/ML 1 ML VIAL IM PRN (11:32)
[2023-02-07] MEDS ORDERED: Promethazine INJ(RESTRICTED) 25 MG/ML 1 ml VIAL IV PRN (11:32)
[2023-02-07] MEDS ORDERED: Buffered Lidocaine 1% SYRIN 1 ml INTRADERM ONE (11:32)
[2023-02-07] MEDS ORDERED: Lactated Ringers 1000 ml BAG 1,000 ML IV ONE (11:32)
[2023-02-07] MEDS ORDERED: miSOPROStol 100 mcg TAB VAGINAL PRN (11:58)
[2023-02-07] MEDS ORDERED: Lactated Ringers 1000 ml BAG 1,000 ML IV SCH (12:00)
[2023-02-07 12:53] LABS: Urine Benzodiazepine Screen None Detected (None Detect); Urine Cannabinoids Screen None Detected (None Detect); Urine Opiates Screen None Detected (None Detect)
[2023-02-07] MEDS: Nicotine PATCH 21 MG/24 HR PATCH TRANSDERM SCH (15:27)
[2023-02-07] MEDS: Insulin NPH 100 units/ml SUBCUT SCH (21:44)
[2023-02-07] MEDS ORDERED: Dinoprostone 10 MG VAG.SUPP VAGINAL ONE (22:26)
[2023-02-08] MEDS ORDERED: Insulin NPH 100 units/ml SUBCUT ONE ×2 (08:11→22:00)
[2023-02-08] MEDS: Nicotine PATCH 21 MG/24 HR PATCH TRANSDERM SCH (09:04)
[2023-02-08] MEDS ORDERED: miSOPROStol 100 mcg TAB VAGINAL ONE ×4 (12:49→22:28)
[2023-02-09] MEDS ORDERED: Morphine 10 MG/ML VIAL (1 ml) IM ONE (04:00)
[2023-02-09 07:54] LABS: Hematocrit 37.1 % (35-45); Hemoglobin 12.4 g/dL (11.5-14.3); Mean Corpuscular Hemoglobin 26.7 pg (27-33); Mean Corpuscular Hgb Conc 33.5 g/dL (31-36); Mean Corpuscular Volume 79.6 fL (80-97); Mean Platelet Volume 9.5 fL (7.5-11.2); Platelet Count 229 10^3/uL (150-450); Red Blood Count 4.66 10^6/uL (3.63-4.92); Red Cell Distribution Width 30.7 % (12-17); White Blood Count 10.2 10^3/uL (3.8-11.8)
[2023-02-09 08:37] LABS: ABS Basophils 0.1 10^3/uL (0.0-0.1); ABS Monocytes 0.9 10^3/uL (0.0-0.9); ABS Neutrophils 6.3 10^3/uL (1.5-7.6); ABS Nucleated RBC 0.01 10^3/ul; Lymphocyte % 29.1 %; Nucleated Red Blood Cells % 0.1 /100 WBC (0.0-0.4)
[2023-02-09] MEDS: Nicotine PATCH 21 MG/24 HR PATCH TRANSDERM SCH (09:36)
[2023-02-09] MEDS ORDERED: Famotidine IV 10 MG/ML 2 ml VIAL (20 mg) IV ONE (09:42)
[2023-02-09] MEDS ORDERED: Dextrose 50% Syringe 50 ml 25 GM/50 ML SYRINGE IV PUSH PRN (09:43)
[2023-02-09] MEDS ORDERED: Insulin Infusion 100unit/100mL 100 UNIT/100 ML BAG IV SCH (10:00)
[2023-02-09] MEDS ORDERED: Oxytocin in LR 20,000 MILLI.UNIT/1,000 ML BAG IV ONE (11:35)
[2023-02-09] MEDS ORDERED: Oxytocin 10 UNITS/ML 1 ML VIAL IM ONE (11:54)
[2023-02-09] MEDS ORDERED: Glycerin ADULT 2.4 gm SUPP PR PRN (11:54)
[2023-02-09] MEDS ORDERED: Witch Hazel PAD JAR TOPICAL PRN (11:54)
[2023-02-09] MEDS ORDERED: Dibucaine 1% OINT 28.35 GM TUBE PR PRN (11:54)
[2023-02-09] MEDS ORDERED: Oxytocin in LR 20,000 MILLI.UNIT/1,000 ML BAG IV SCH (12:00)
[2023-02-09] MEDS ORDERED: Azithromyxin PAK 250 mg TA(NF) PO SCH (12:00)
[2023-02-09] MEDS ORDERED: Lactated Ringers 1000 ml BAG 1,000 ML IV SCH (12:00)
[2023-02-09] MEDS ORDERED: Lidocaine 1% MPF 2 ML VIAL SUBCUT ONE (12:01)
[2023-02-09] MEDS: Insulin NPH 100 units/ml SUBCUT SCH (14:12)
[2023-02-10 07:31] LABS: Hematocrit 29.9 % (35-45); Hemoglobin 10.1 g/dL (11.5-14.3); Mean Corpuscular Hemoglobin 26.8 pg (27-33); Mean Corpuscular Hgb Conc 33.6 g/dL (31-36); Mean Corpuscular Volume 79.7 fL (80-97); Mean Platelet Volume 8.8 fL (7.5-11.2); Platelet Count 199 10^3/uL (150-450); Red Blood Count 3.76 10^6/uL (3.63-4.92); Red Cell Distribution Width 30.5 % (12-17); White Blood Count 10.3 10^3/uL (3.8-11.8)
[2023-02-10 10:21] LABS: ABS Basophils 0.1 10^3/uL (0.0-0.1); ABS Lymphocytes 2.3 10^3/uL (1.0-4.8); ABS Monocytes 0.8 10^3/uL (0.0-0.9); ABS Neutrophils 7.1 10^3/uL (1.5-7.6); Lymphocyte % 22.5 %
[2023-02-10] MEDS ORDERED: Lidocaine PATCH 4% TOPICAL PRN (14:37)
[2023-02-11 09:05] VITALS: BP 115/77
== END 2023-02-11 15:04 | disposition home or self-care (01) | DRG 560 ==
LOC: MCHOBOUT 09:07 → MCHOB 11:38
PROVIDERS: ADMIT Obstetrics & Gynecology; ATTEND Obstetrics & Gynecology

== ENCOUNTER 2023-02-19 17:18 | Inpatient (IN) ==
[2023-02-19] MEDS ORDERED: NS 0.9% 1000 ml BAG 1,000 ML IV ONE (17:29)
[2023-02-19] MEDS ORDERED: Lorazepam PYXIS KEY PRN (17:30)
[2023-02-19] MEDS ORDERED: LORazepam 2 mg VIAL 1 ml IV PUSH ONE (17:30)
[2023-02-19 18:13] LABS: Hematocrit 38.2 % (35-45); Hemoglobin 12.5 g/dL (11.5-14.3); Mean Corpuscular Hemoglobin 26.8 pg (27-33); Mean Corpuscular Hgb Conc 32.7 g/dL (31-36); Mean Corpuscular Volume 81.7 fL (80-97); Mean Platelet Volume 7.3 fL (7.5-11.2); Platelet Count 359 10^3/uL (150-450); Red Blood Count 4.67 10^6/uL (3.63-4.92); Red Cell Distribution Width 28.9 % (12-17); White Blood Count 7.6 10^3/uL (3.8-11.8)
[2023-02-19 18:14] LABS: Urine Appearance Cloudy; Urine Bilirubin Negative (Negative); Urine Blood 3+ (Negative); Urine Color Yellow; Urine Glucose Negative (Negative); Urine Ketones Trace (Negative); Urine Nitrite Negative (Negative); Urine Protein Negative (Negative); Urine Specific Gravity 1.005 (1.002-1.030); Urine Urobilinogen Negative (Negative)
[2023-02-19 18:16] LABS: Urine Bacteria Absent (Absent); Urine Red Blood Cell 2+(6-10/hpf) (Absent); Urine Squamous Epithelial Cell Present (Absent); Urine White Blood Cell 2+(11-20/hpf) (Absent)
[2023-02-19 18:31] LABS: Albumin 3.6 g/dL (3.2-5.2); Albumin/Globulin Ratio 1.3 (1-3); Calcium 9.1 mg/dL (8.6-10.3); Creatinine, Serum 0.75 mg/dL (0.51-0.95); Globulin 2.8 g/dL (2-4); Magnesium 1.9 mg/dL (1.9-2.7); Potassium 3.8 mmol/L (3.5-5.0); Total Bilirubin 0.3 mg/dL (0.2-1.0); Total Protein 6.4 g/dL (6.4-8.9); eGFR CKD-EPI 111.1 (>60)
[2023-02-19 18:33] LABS: Urine Benzodiazepine Screen None Detected (None Detect); Urine Cannabinoids Screen None Detected (None Detect); Urine Opiates Screen None Detected (None Detect)
[2023-02-19 18:37] LABS: HCG Pregnancy 28.34 mIU/mL
[2023-02-19 19:09] LABS: ABS Lymphocytes 1.6 10^3/uL (1.0-4.8); ABS Monocytes 0.3 10^3/uL (0.0-0.9); ABS Neutrophils 5.6 10^3/uL (1.5-7.6); Eosinophil % 0.1 %; Lymphocyte % 21.3 %
[2023-02-19] MEDS ORDERED: Al Hydrox/Mg Hydrox/Simet LIQ 30 ML UDC PO PRN (21:21)
[2023-02-20] MEDS: Nicotine GUM 2MG FRUIT FLAVOR PO PRN ×3 (03:21→17:52)
[2023-02-20 08:16] LABS: Cholesterol 244 mg/dL; HDL Cholesterol 66.2 mg/dL; LDL Cholesterol 158 mg/dL; Triglycerides 101 mg/dL
[2023-02-20 08:27] LABS: Acetaminophen < 15 mcg/mL; Alcohol, S < 13 mg/dL (<13); Salicylate < 2.50 mg/dL (<30)
[2023-02-20] MEDS: Vitamin THERAPEUTIC TAB PO SCH (08:32)
[2023-02-20] MEDS: Nicotine PATCH 21 MG/24 HR PATCH TRANSDERM SCH (08:34)
[2023-02-20 08:41] LABS: TSH Ultra Thyroid Stim Horm 0.86 mcIU/mL (0.34-5.60)
[2023-02-21] MEDS: Vitamin THERAPEUTIC TAB PO SCH (08:08)
[2023-02-21] MEDS: Nicotine PATCH 21 MG/24 HR PATCH TRANSDERM SCH (08:09)
[2023-02-21] MEDS: Nicotine GUM 2MG FRUIT FLAVOR PO PRN ×3 (08:09→19:29)
[2023-02-22] MEDS: Vitamin THERAPEUTIC TAB PO SCH (10:11)
[2023-02-22] MEDS: Nicotine PATCH 21 MG/24 HR PATCH TRANSDERM SCH (10:11)
[2023-02-22] MEDS: Nicotine GUM 2MG FRUIT FLAVOR PO PRN ×2 (10:12→17:34)
[2023-02-22] MEDS: Nicotine Lozenge mini 2 MG LOZNG.MINI MT PRN ×2 (13:55→17:34)
[2023-02-23] MEDS: Vitamin THERAPEUTIC TAB PO SCH (10:24)
[2023-02-23] MEDS: Nicotine PATCH 21 MG/24 HR PATCH TRANSDERM SCH (10:25)
[2023-02-23] MEDS: Nicotine Lozenge mini 2 MG LOZNG.MINI MT PRN ×2 (10:26→17:45)
[2023-02-23] MEDS: Nicotine GUM 2MG FRUIT FLAVOR PO PRN ×2 (11:48→19:19)
[2023-02-24] MEDS: Nicotine Lozenge mini 2 MG LOZNG.MINI MT PRN ×2 (10:20→14:10)
[2023-02-24] MEDS: Nicotine PATCH 21 MG/24 HR PATCH TRANSDERM SCH (10:20)
[2023-02-24] MEDS: Vitamin THERAPEUTIC TAB PO SCH (10:21)
[2023-02-24] MEDS: Nicotine GUM 2MG FRUIT FLAVOR PO PRN (11:18)
[2023-02-25] MEDS: Nicotine PATCH 21 MG/24 HR PATCH TRANSDERM SCH (09:24)
[2023-02-25] MEDS: Vitamin THERAPEUTIC TAB PO SCH (09:24)
[2023-02-25] MEDS: Nicotine Lozenge mini 2 MG LOZNG.MINI MT PRN ×2 (10:51→15:54)
[2023-02-25] MEDS: Nicotine GUM 2MG FRUIT FLAVOR PO PRN ×2 (13:11→19:02)
[2023-02-26] MEDS: Nicotine PATCH 21 MG/24 HR PATCH TRANSDERM SCH (10:52)
[2023-02-26] MEDS: Vitamin THERAPEUTIC TAB PO SCH (10:52)
[2023-02-26] MEDS: Nicotine Lozenge mini 2 MG LOZNG.MINI MT PRN ×2 (10:52→15:29)
[2023-02-26] MEDS: Nicotine GUM 2MG FRUIT FLAVOR PO PRN (12:14)
[2023-02-27] MEDS: Vitamin THERAPEUTIC TAB PO SCH (09:42)
[2023-02-27] MEDS: Nicotine PATCH 21 MG/24 HR PATCH TRANSDERM SCH (09:46)
[2023-02-27] MEDS: Nicotine Lozenge mini 2 MG LOZNG.MINI MT PRN ×2 (12:05→16:25)
[2023-02-27] MEDS: Nicotine GUM 2MG FRUIT FLAVOR PO PRN ×2 (13:05→19:55)
[2023-02-28 09:50] VITALS: BP 96/67
[2023-02-28] MEDS: Vitamin THERAPEUTIC TAB PO SCH (10:48)
[2023-02-28] MEDS: Nicotine PATCH 21 MG/24 HR PATCH TRANSDERM SCH (10:48)
[2023-02-28] MEDS: Nicotine Lozenge mini 2 MG LOZNG.MINI MT PRN (10:50)
== END 2023-02-28 12:25 | disposition home or self-care (01) | DRG 751 ==
LOC: ED 17:18 → EDHOLD 20:55 → BSU 21:47
PROVIDERS: ADMIT Psychiatry & Neurology Psychiatry; ATTEND Psychiatry & Neurology Psychiatry

== ENCOUNTER 2023-03-05 17:33 | Inpatient (IN) ==
[2023-03-05 19:48] LABS: Hematocrit 38.2 % (35-45); Hemoglobin 12.3 g/dL (11.5-14.3); Mean Corpuscular Hemoglobin 27.1 pg (27-33); Mean Corpuscular Hgb Conc 32.2 g/dL (31-36); Mean Corpuscular Volume 84.1 fL (80-97); Mean Platelet Volume 8.4 fL (7.5-11.2); Platelet Count 293 10^3/uL (150-450); Red Blood Count 4.55 10^6/uL (3.63-4.92); Red Cell Distribution Width 24.5 % (12-17); White Blood Count 7.5 10^3/uL (3.8-11.8)
[2023-03-05 20:04] LABS: ALT 13 U/L (7-52); AST 17 U/L (13-39); Albumin 3.9 g/dL (3.2-5.2); Albumin/Globulin Ratio 1.6 (1-3); Alkaline Phosphatase 81 U/L (35-149); Anion Gap 12 mmol/L (2-16); Blood Urea Nitrogen 7 mg/dL (6-24); CO2 Carbon Dioxide 22 mmol/L (22-32); Calcium 9.4 mg/dL (8.6-10.3); Chloride 106 mmol/L (101-111); Creatinine, Serum 0.78 mg/dL (0.51-0.95); Globulin 2.5 g/dL (2-4); Glucose 148 mg/dL (70-100); Potassium 3.5 mmol/L (3.5-5.0); Sodium 140 mmol/L (135-145); Total Protein 6.4 g/dL (6.4-8.9)
[2023-03-05 20:19] LABS: Acetaminophen < 15 mcg/mL; Alcohol, S < 13 mg/dL (<13); Salicylate < 2.50 mg/dL (<30)
[2023-03-05 20:34] LABS: TSH Ultra Thyroid Stim Horm 0.88 mcIU/mL (0.34-5.60)
[2023-03-05 20:37] LABS: ABS Basophils 0.1 10^3/uL (0.0-0.1); ABS Lymphocytes 2.7 10^3/uL (1.0-4.8); ABS Monocytes 0.4 10^3/uL (0.0-0.9); ABS Neutrophils 4.3 10^3/uL (1.5-7.6); Eosinophil % 0.1 %; Lymphocyte % 36.2 %; Nucleated Red Blood Cells % 0.1 /100 WBC (0.0-0.4)
[2023-03-05 22:18] LABS: Urine Benzodiazepine Screen None Detected (None Detect); Urine Cannabinoids Screen None Detected (None Detect); Urine Opiates Screen None Detected (None Detect)
[2023-03-05 22:53] LABS: Urine Appearance Clear; Urine Bilirubin Negative (Negative); Urine Blood Negative (Negative); Urine Color Yellow; Urine Glucose Negative (Negative); Urine Ketones Negative (Negative); Urine Nitrite Negative (Negative); Urine Protein Negative (Negative); Urine Specific Gravity 1.011 (1.002-1.030); Urine Urobilinogen Negative (Negative)
[2023-03-05 23:05] LABS: Urine Bacteria Absent (Absent); Urine Red Blood Cell Absent (Absent); Urine Squamous Epithelial Cell Present (Absent); Urine White Blood Cell Trace(0-5/hpf) (Absent)
[2023-03-05] MEDS ORDERED: Al Hydrox/Mg Hydrox/Simet LIQ 30 ML UDC PO PRN (23:09)
[2023-03-05] MEDS ORDERED: Witch Hazel PAD JAR TOPICAL PRN (23:13)
[2023-03-06 08:27] LABS: HDL Cholesterol 69.2 mg/dL
[2023-03-06] MEDS: Multivitamins/Minerals TAB PO SCH (11:26)
[2023-03-06] MEDS: Nicotine PATCH 21 MG/24 HR PATCH TRANSDERM SCH (11:26)
[2023-03-06] MEDS: Nicotine Lozenge mini 2 MG LOZNG.MINI MT PRN ×2 (11:29→17:48)
[2023-03-06] MEDS: Nicotine GUM 2MG FRUIT FLAVOR PO PRN ×2 (12:33→20:31)
[2023-03-07] MEDS: Multivitamins/Minerals TAB PO SCH ×2 (09:03→13:06)
[2023-03-07] MEDS: Nicotine PATCH 21 MG/24 HR PATCH TRANSDERM SCH ×2 (09:03→13:06)
[2023-03-07] MEDS: Nicotine Lozenge mini 2 MG LOZNG.MINI MT PRN ×3 (13:07→19:57)
[2023-03-07] MEDS: Nicotine GUM 2MG FRUIT FLAVOR PO PRN ×2 (14:55→18:32)
[2023-03-08] MEDS: Nicotine PATCH 21 MG/24 HR PATCH TRANSDERM SCH (08:47)
[2023-03-08] MEDS: Multivitamins/Minerals TAB PO SCH (08:47)
[2023-03-08] MEDS: Nicotine Lozenge mini 2 MG LOZNG.MINI MT PRN ×2 (09:11→15:57)
[2023-03-08] MEDS: Nicotine GUM 2MG FRUIT FLAVOR PO PRN ×2 (11:47→20:31)
[2023-03-09] MEDS: Nicotine PATCH 21 MG/24 HR PATCH TRANSDERM SCH (09:49)
[2023-03-09] MEDS: Multivitamins/Minerals TAB PO SCH (09:49)
[2023-03-09] MEDS: Nicotine Lozenge mini 2 MG LOZNG.MINI MT PRN ×2 (14:01→17:37)
[2023-03-09] MEDS: Nicotine GUM 2MG FRUIT FLAVOR PO PRN ×2 (15:06→20:27)
[2023-03-10] MEDS: Nicotine PATCH 21 MG/24 HR PATCH TRANSDERM SCH (11:20)
[2023-03-10] MEDS: Multivitamins/Minerals TAB PO SCH (11:21)
[2023-03-10] MEDS: Nicotine Lozenge mini 2 MG LOZNG.MINI MT PRN ×2 (11:23→20:24)
[2023-03-10] MEDS: Nicotine GUM 2MG FRUIT FLAVOR PO PRN (15:18)
[2023-03-11] MEDS: Nicotine Lozenge mini 2 MG LOZNG.MINI MT PRN ×2 (10:13→19:12)
[2023-03-11] MEDS: Multivitamins/Minerals TAB PO SCH (10:13)
[2023-03-11] MEDS: Nicotine PATCH 21 MG/24 HR PATCH TRANSDERM SCH (10:13)
[2023-03-11] MEDS: Nicotine GUM 2MG FRUIT FLAVOR PO PRN ×2 (11:05→17:46)
[2023-03-12] MEDS: Multivitamins/Minerals TAB PO SCH (11:10)
[2023-03-12] MEDS: Nicotine Lozenge mini 2 MG LOZNG.MINI MT PRN ×2 (11:10→14:27)
[2023-03-12] MEDS: Nicotine PATCH 21 MG/24 HR PATCH TRANSDERM SCH (11:11)
[2023-03-12] MEDS: Nicotine GUM 2MG FRUIT FLAVOR PO PRN ×2 (12:42→19:54)
[2023-03-13 07:48] LABS: Hematocrit 36.5 % (35-45); Hemoglobin 12.2 g/dL (11.5-14.3); Mean Corpuscular Hemoglobin 28.1 pg (27-33); Mean Corpuscular Hgb Conc 33.4 g/dL (31-36); Mean Corpuscular Volume 84.3 fL (80-97); Mean Platelet Volume 8.3 fL (7.5-11.2); Platelet Count 252 10^3/uL (150-450); Red Blood Count 4.33 10^6/uL (3.63-4.92); Red Cell Distribution Width 23.2 % (12-17); White Blood Count 6.8 10^3/uL (3.8-11.8)
[2023-03-13 08:07] LABS: Albumin 3.4 g/dL (3.2-5.2); Albumin/Globulin Ratio 1.4 (1-3); Calcium 9.1 mg/dL (8.6-10.3); Creatinine, Serum 0.81 mg/dL (0.51-0.95); Globulin 2.4 g/dL (2-4); Potassium 4.1 mmol/L (3.5-5.0); Total Bilirubin 0.2 mg/dL (0.2-1.0); Total Protein 5.8 g/dL (6.4-8.9); eGFR CKD-EPI 101.3 (>60)
[2023-03-13 08:42] LABS: Lithium 0.68 mmol/L (0.6-1.2)
[2023-03-13 08:49] LABS: Anisocytosis 2+; Tear Drop Cells 1+
[2023-03-13 08:50] LABS: ABS Basophils 0.1 10^3/uL (0.0-0.1); ABS Lymphocytes 3.2 10^3/uL (1.0-4.8); ABS Monocytes 0.5 10^3/uL (0.0-0.9); ABS Nucleated RBC 0.01 10^3/ul; Eosinophil % 0.2 %; Lymphocyte % 46.7 %; Nucleated Red Blood Cells % 0.2 /100 WBC (0.0-0.4)
[2023-03-13 08:58] LABS: TSH Ultra Thyroid Stim Horm 2.07 mcIU/mL (0.34-5.60)
[2023-03-13] MEDS: Nicotine PATCH 21 MG/24 HR PATCH TRANSDERM SCH (12:15)
[2023-03-13] MEDS: Multivitamins/Minerals TAB PO SCH (12:15)
[2023-03-13] MEDS: Nicotine Lozenge mini 2 MG LOZNG.MINI MT PRN ×2 (12:16→15:33)
[2023-03-13] MEDS: Nicotine GUM 2MG FRUIT FLAVOR PO PRN ×3 (13:41→21:31)
[2023-03-14] MEDS: Multivitamins/Minerals TAB PO SCH (11:02)
[2023-03-14] MEDS: Nicotine PATCH 21 MG/24 HR PATCH TRANSDERM SCH (11:03)
[2023-03-14] MEDS: Nicotine Lozenge mini 2 MG LOZNG.MINI MT PRN ×2 (11:04→16:26)
[2023-03-14] MEDS: Nicotine GUM 2MG FRUIT FLAVOR PO PRN ×2 (12:51→18:13)
[2023-03-15] MEDS: Nicotine PATCH 21 MG/24 HR PATCH TRANSDERM SCH (07:41)
[2023-03-15] MEDS: Multivitamins/Minerals TAB PO SCH (07:42)
[2023-03-15] MEDS: Nicotine Lozenge mini 2 MG LOZNG.MINI MT PRN ×2 (14:04→18:58)
[2023-03-15] MEDS: Nicotine GUM 2MG FRUIT FLAVOR PO PRN ×2 (15:22→21:30)
[2023-03-16] MEDS: Nicotine PATCH 21 MG/24 HR PATCH TRANSDERM SCH ×2 (10:37→15:21)
[2023-03-16] MEDS: Multivitamins/Minerals TAB PO SCH ×2 (10:38→15:21)
[2023-03-16] MEDS: Nicotine Lozenge mini 2 MG LOZNG.MINI MT PRN (15:23)
[2023-03-16] MEDS: Nicotine GUM 2MG FRUIT FLAVOR PO PRN (17:16)
[2023-03-17] MEDS: Nicotine PATCH 21 MG/24 HR PATCH TRANSDERM SCH (09:50)
[2023-03-17] MEDS: Multivitamins/Minerals TAB PO SCH (09:50)
[2023-03-17] MEDS: Nicotine Lozenge mini 2 MG LOZNG.MINI MT PRN (09:52)
[2023-03-17 11:04] VITALS: BP 91/64
== END 2023-03-17 12:49 | disposition home or self-care (01) | DRG 753 ==
LOC: ED 17:33 → EDHOLD 21:52 → BSU 23:08
PROVIDERS: ADMIT Psychiatry & Neurology Psychiatry; ATTEND Psychiatry & Neurology Psychiatry

== ENCOUNTER 2024-01-17 23:48 | Inpatient (IN) ==
[2024-01-18 01:30] LABS: ABS Basophils 0.1 10^3/uL (0.0-0.1); ABS Lymphocytes 2.2 10^3/uL (1.0-4.8); ABS Monocytes 0.7 10^3/uL (0.0-0.9); ABS Neutrophils 11.6 10^3/uL (1.5-7.6); ABS Nucleated RBC 0.01 10^3/ul; Eosinophil % 0.3 %; Hematocrit 40.2 % (35-45); Hemoglobin 12.9 g/dL (11.5-14.3); Mean Corpuscular Hemoglobin 27.9 pg (27-33); Mean Corpuscular Hgb Conc 32.2 g/dL (31-36); Mean Corpuscular Volume 86.8 fL (80-97); Platelet Count 341 10^3/uL (150-450); Red Blood Count 4.63 10^6/uL (3.63-4.92); Red Cell Distribution Width 13.9 % (12-17); White Blood Count 14.6 10^3/uL (3.8-11.8)
[2024-01-18 01:57] LABS: Urine Benzodiazepine Screen None Detected (None Detect); Urine Cannabinoids Screen None Detected (None Detect); Urine Opiates Screen None Detected (None Detect)
[2024-01-18 01:59] LABS: Urine Appearance Clear; Urine Bilirubin Negative (Negative); Urine Blood Negative (Negative); Urine Color Colorless; Urine Glucose Negative (Negative); Urine Ketones Negative (Negative); Urine Nitrite Negative (Negative); Urine Protein Negative (Negative); Urine Specific Gravity 1.004 (1.002-1.030); Urine Urobilinogen Negative (Negative)
[2024-01-18 02:04] LABS: Urine Bacteria 3+ /HPF (Absent); Urine Red Blood Cell Trace(0-2/hpf) /HPF (0-Trace); Urine Squamous Epithelial Cell Present /HPF (Absent); Urine White Blood Cell 2+(11-20/hpf) /HPF (0-Trace)
[2024-01-18] MEDS: Droperidol 5 MG/2 ML 2 ML VIAL IM ONE (02:05)
[2024-01-18 02:06] LABS: ALT 26 U/L (7-52); AST 26 U/L (13-39); Acetaminophen < 15 mcg/mL; Albumin 4.2 g/dL (3.2-5.2); Albumin/Globulin Ratio 1.8 (1-3); Alcohol, S < 13 mg/dL (<13); Alkaline Phosphatase 90 U/L (35-149); Anion Gap 7 mmol/L (2-16); Blood Urea Nitrogen 7 mg/dL (6-24); CO2 Carbon Dioxide 25 mmol/L (22-32); Calcium 9.6 mg/dL (8.6-10.3); Chloride 106 mmol/L (101-111); Creatinine, Serum 0.83 mg/dL (0.51-0.95); Globulin 2.4 g/dL (2-4); Glucose 126 mg/dL (70-100); Potassium 4.1 mmol/L (3.5-5.0); Salicylate < 2.50 mg/dL (<30); Sodium 138 mmol/L (135-145); Total Bilirubin 0.5 mg/dL (0.2-1.0); Total Protein 6.6 g/dL (6.4-8.9); eGFR CKD-EPI 97.8 (>60)
[2024-01-18 02:13] LABS: HCG Pregnancy < 0.60 mIU/mL
[2024-01-18 02:22] LABS: TSH Ultra Thyroid Stim Horm 1.25 mcIU/mL (0.34-5.60)
[2024-01-18 02:41] LABS: Lithium 0.16 mmol/L (0.6-1.2)
[2024-01-18] MEDS: Vitamin THERAPEUTIC TAB PO SCH (08:44)
[2024-01-18] MEDS: Nicotine GUM 4MG FRUIT FLAVOR PO ONE (16:35)
[2024-01-18] MEDS: Nicotine Lozenge mini 2 MG LOZNG.MINI MT PRN (18:39)
[2024-01-18] MEDS: Nicotine GUM 2MG FRUIT FLAVOR PO PRN (21:04)
[2024-01-18] MEDS: Lithium Carb ER 300 mg TAB(NF) PO SCH (22:41)
[2024-01-19 09:05] LABS: HDL Cholesterol 54.9 mg/dL
[2024-01-19] MEDS: Lithium Carbonate ER 450mg TAB PO SCH (22:04)
[2024-01-21] MEDS: Al Hydrox/Mg Hydrox/Simet LIQ 30 ML UDC PO PRN (07:47)
[2024-01-24] MEDS: Calcium Carb (TUMS) 500 mg CHEW TAB PO PRN (14:56)
[2024-01-27] MEDS: Lithium Carb ER 300 mg TAB(NF) PO SCH (23:03)
[2024-01-28] MEDS: Nicotine Lozenge mini 4 MG LOZNG.MINI MT PRN (10:52)
[2024-01-31] MEDS: Lithium Carb ER 300 mg TAB(NF) PO ONE (23:02)
[2024-02-01] MEDS: Lithium Carb ER 300 mg TAB(NF) PO SCH (20:36)
[2024-02-05] MEDS: OLANZapine 5 mg TAB *ODT PO SCH (22:06)
[2024-02-09] MEDS: Lithium Carb ER 300 mg TAB(NF) PO SCH (22:37)
[2024-02-10 09:32] VITALS: BP 113/85
== END 2024-02-10 11:56 | disposition home or self-care (01) | DRG 753 ==
LOC: ED 23:48 → EDHOLD 01-18 03:50 → BSU 01-18 06:00
PROVIDERS: ADMIT Student in an Organized Health Care Education/Training Program; ATTEND Student in an Organized Health Care Education/Training Program